=== PATIENT | female | born 1945 | race Caucasian/White ===

== ENCOUNTER → 2016-03-27 | Outpatient (CLI) | payer OTHER | LOC: RAD 09:15 | DX: Z12.31 Encounter for screening mammogram for malignant neoplasm of breast (principal) ==

== ENCOUNTER → 2017-04-02 | Outpatient (CLI) | payer OTHER | LOC: RAD 01:33 | DX: Z12.31 Encounter for screening mammogram for malignant neoplasm of breast (principal) ==

== ENCOUNTER → 2018-07-14 | Outpatient (CLI) | payer OTHER | LOC: RAD 11:58 | DX: Z12.31 Encounter for screening mammogram for malignant neoplasm of breast (principal) ==

== ENCOUNTER → 2019-09-06 | Outpatient (CLI) | payer OTHER | LOC: BC 10:04 | PROVIDERS: ATTEND Internal Medicine Hematology & Oncology | DX: Z12.31 Encounter for screening mammogram for malignant neoplasm of breast (principal) ==

== ENCOUNTER → 2020-09-13 | Outpatient (CLI) | payer OTHER | LOC: RAD 10:34 | DX: Z12.31 Encounter for screening mammogram for malignant neoplasm of breast (principal) ==